=== PATIENT | male | born 1965 | race Caucasian/White ===

== ENCOUNTER 2018-11-15 14:24 | Emergency (ER) | payer OTHER ==
[2018-11-15 15:00] LABS: #Basophils 0.1 thou/uL (0.0-0.2); #Eosinphils 0.1 thou/uL (0.0-0.7); #Lymphocytes 1.4 thou/uL (1.20-3.40); #Monocytes 0.4 thou/uL (0.11-0.59); #Neutrophils 2.3 thou/uL (1.40-6.50); %Eosinophils 2.1 % (0.0-10.0); %Lymphocytes 33.1 % (21.0-51.0); %Monocytes 8.5 % (0.0-10.0); %Neutrophils 54.4 % (42.0-75.0); Hemoglobin 13.7 g/dL (14.0-18.0); Mean Corpuscular HGB CONC 32.1 g/dL (32.0-36.0); Mean Corpuscular Hemoglobin 29.3 pg (27.0-31.0); Mean Corpuscular Volume 91.2 fL (78.0-98.0); Mean Platelet Volume 7.1 fL (7.4-10.4); Platelet Count 156 thou/uL (130-400); RBC Distribution Width 12.3 % (11.5-14.5); Red Blood Cell (RBC) Count 4.67 mill/uL (4.70-6.10); White Blood Cell (WBC) Count 4.3 thou/uL (4.8-10.8)
[2018-11-15] MEDS ORDERED: Aspirin Chewable 81 MG TAB ONE (15:15)
[2018-11-15 15:16] LABS: ALT (SGPT) 28 U/L (8-55); AST (SGOT) 34 U/L (5-34); Albumin 4.4 g/dL (3.5-5.0); Alkaline Phosphatase 91 U/L (40-150); Anion Gap 16 mmol/L (10-20); BUN (Urea Nitrogen) 13 mg/dL (8.4-25.7); Bilirubin, Total 0.6 mg/dL (0.2-1.2); Calc. Creatinine Clearance 0 mL/min (70-130); Calcium 9.4 mg/dL (7.8-10.44); Carbon Dioxide 20 mmol/L (22-29); Chloride 106 mmol/L (98-107); Estimated GFR-MDRD 85; Globulin 3.1 g/dL (2.4-3.5); Glucose 91 mg/dL (70-105); Potassium 3.9 mmol/L (3.5-5.1); Protein, Total 7.5 g/dL (6.0-8.3); Sodium 138 mmol/L (136-145)
--- NOTE | 2018-11-15 15:49 | RAD ---
CHEST 1 VIEW: INDICATION: History of chest pain. COMPARISON: None. FINDINGS: There is elevation of the right hemidiaphragm. Lungs are clear. Heart size is normal. There is par tial visualization of instrumentation involving the proximal humerus. No acute osseous abnormality i s evident. IMPRESSION: No acute cardiopulmonary abnormality. POS: [facility]
== END 2018-11-15 16:05 | disposition home or self-care (01) ==
LOC: NAV ERS 14:24
DX: R07.89 Other chest pain (principal); F17.220 Nicotine dependence, chewing tobacco, uncomplicated; Z79.899 Other long term (current) drug therapy
CPT/HCPCS: 36415; 71045; 80053; 83880; 84484; 85025; 85379; 93005

== ENCOUNTER 2018-11-22 11:29 | Outpatient (CLI) | payer OTHER ==
--- NOTE | 2018-11-22 11:58 | RAD ---
Thoracic spine 3 views HISTORY: Back pain. FINDINGS: There are 12 thoracic type vertebrae. Pedicles are intact. Vertebral body heights and align ment are maintained. Mild osteophytosis throughout the vertebral bodies and facets. No acute fracture, dislocation, or aggressive osseous erosions are apparent. IMPRESSION: No acute osseous abnormalities are demonstrated. Mild degenerative changes thoracic spine .
--- NOTE | 2018-11-22 11:59 | RAD ---
EXAM: XR Lumbar Spine 2 Or 3 View PROVIDED CLINICAL HISTORY: Back pain COMPARISON: None FINDINGS: Lumbar alignment appears normal. 5 nonrib-bearing lumbar-type vertebral bodies are present. Vertebral body heights appear preserved. Intervertebral disc space heights appear preserved. Lower lumbar spine facet arthritis changes are seen. Pedicles appear intact. Annular degenerative changes are note d. IMPRESSION: Lumbar spine degenerative change.
[2018-11-22 12:12] LABS: #Basophils 0.1 thou/uL (0.0-0.2); #Eosinphils 0.1 thou/uL (0.0-0.7); #Lymphocytes 1.3 thou/uL (1.20-3.40); #Monocytes 0.4 thou/uL (0.11-0.59); #Neutrophils 2.5 thou/uL (1.40-6.50); %Basophils 1.3 % (0.0-1.0); %Eosinophils 1.3 % (0.0-10.0); %Lymphocytes 31.1 % (21.0-51.0); %Monocytes 9.1 % (0.0-10.0); %Neutrophils 57.2 % (42.0-75.0); Hemoglobin 14.6 g/dL (14.0-18.0); Mean Corpuscular Hemoglobin 29.6 pg (27.0-31.0); Mean Corpuscular Volume 92.4 fL (78.0-98.0); Mean Platelet Volume 7.8 fL (7.4-10.4); Platelet Count 147 thou/uL (130-400); RBC Distribution Width 12.4 % (11.5-14.5); Red Blood Cell (RBC) Count 4.92 mill/uL (4.70-6.10); White Blood Cell (WBC) Count 4.3 thou/uL (4.8-10.8)
== END 2018-11-22 11:30 | disposition home or self-care (01) ==
LOC: NAV RAD 11:29
PROVIDERS: ATTEND Family Medicine
DX: K76.9 Liver disease, unspecified (principal); R10.11 Right upper quadrant pain; M47.816 Spondylosis without myelopathy or radiculopathy, lumbar region; M47.814 Spondylosis without myelopathy or radiculopathy, thoracic region
CPT/HCPCS: 36415; 72072; 72100; 82150; 83690; 85025

== ENCOUNTER 2018-11-25 08:11 | Outpatient (CLI) | payer OTHER ==
--- NOTE | 2018-11-25 10:03 | ULT ---
ULTRASOUND ABDOMEN: HISTORY: Right upper abdominal pain and palpable and tender liver. FINDINGS: Correlation is made with the CT scan of abdomen and pelvis dated 01/16/2017. There is heterogeneity in the echotexture of the right lobe of the liver. No focal mass or extrahepa tic ductal dilatation is seen. The gallbladder is suboptimally visualized without definite evidence of gallstones, gallbladder wall thickening, or pericholecystic fluid. The kidneys and visualized por tions of the pancreas, IVC, and aorta appear normal. The common duct measures 5 mm in diameter. No free fluid is seen in the abdomen. IMPRESSION: 1. Findings are suggestive of fatty infiltration of the liver. 2. Further evaluation with contrast-enhanced CT scan of the abdomen and pelvis is recommended. POS: [facility]
== END 2018-11-25 08:12 | disposition home or self-care (01) ==
LOC: NAV ULT 08:11
PROVIDERS: ATTEND Family Medicine
DX: K76.9 Liver disease, unspecified (principal)
CPT/HCPCS: 76700

== ENCOUNTER 2021-11-29 15:54 | Outpatient (CLI) | payer OTHER | END 2021-11-29 15:55 | disposition home or self-care (01) | LOC: NAV RAD 15:54 | PROVIDERS: ATTEND Family Medicine | DX: M54.50 Low back pain, unspecified (principal); M47.816 Spondylosis without myelopathy or radiculopathy, lumbar region | CPT/HCPCS: 72100 ==